=== PATIENT | male | born 1985 | race Caucasian/White ===

== ENCOUNTER 2020-01-12 18:58 | Emergency (ER) | payer SELFPAY ==
[2020-01-12 19:18] VITALS: BP 148/102
--- NOTE | 2020-01-12 19:22 | UC ---
FLU HPI - HPI Summary HPI Summary: Cough since 01/10/20; CP, upper back pain, with cough, and inhalation-not exhalation - History of Current Complaint Chief Complaint: UCRespiratory Stated Complaint: COUGH, LIGHT HEADED Time Seen by Provider: 01/12/20 19:08 Hx Obtained From: Patient Onset/Duration: Sudden Onset, Lasting Days Severity Currently: Mild Severity Initially: Moderate Pain Intensity: 4 - Allergy/Home Medications Allergies/Adverse Reactions: Allergies Allergy/AdvReac Type Severity Reaction Status Date / Time amoxicillin Allergy Rash Verified 01/12/20 19:09 Home Medications: Home Medications Guaifenesin/Dextromethorphan [Mucinex Dm ER 1,200-60 mg Tab] 1 each PO Q12H 05/26 [History Confirmed 01/12/20] Sambucol 1 dose PO Q3H PRN 01/12/20 [History Confirmed 01/12/20] PMH/Surg Hx/FS Hx/Imm Hx Previously Healthy: Yes - Surgical History Surgical History: Yes Surgery Procedure, Year, and Place: tonsils as child - Social History Alcohol Use: Weekly Alcohol Amount: 30 Substance Use Type: None Smoking Status (MU): Current Some Day Smoker Review of Systems All Other Systems Reviewed And Are Negative: Yes Constitutional: Positive: Fever, Chills, Fatigue Respiratory: Positive: Cough Musculoskeletal: Positive: Myalgia Neurological/Mental Status: Positive: Headache Physical Exam Triage Information Reviewed: Yes Appearance: Well-Nourished, Ill-Appearing, Pain Distress Vital Signs: Initial Vital Signs Temp 97.3 F 01/12/20 19:08 Pulse 115 01/12/20 19:08 Resp 16 01/12/20 19:08 BP 148/102 01/12/20 19:08 Pulse Ox 98 01/12/20 19:08 Vital Signs Reviewed: Yes Eye Exam: Normal ENT: Positive: Pharyngeal erythema, TM bulging, TM red, Hoarse voice Dental Exam: Normal Neck exam: Normal Respiratory Exam: Normal Respiratory: Positive: Chest non-tender, Lungs clear, Normal breath sounds Cardiovascular Exam: Normal Cardiovascular: Positive: RRR, No Murmur, Pulses Normal Abdominal Exam: Normal Bowel Sounds: Positive: Present Musculoskeletal Exam: Normal Neurological Exam: Normal Psychological Exam: Normal Skin Exam: Normal Flu Course/Dx - Course Course Of Treatment: hx obtained, exam performed ,meds reviewed, flu swab obtained. - Differential Dx/Diagnosis Differential Diagnosis/HQI/PQRI: Influenza Provider Diagnosis: Influenza B Discharge ED - Sign-Out/Discharge Documenting (check all that apply): Patient Departure All imaging exams completed and their final reports reviewed: No Studies - Discharge Plan Condition: Stable Disposition: HOME Patient Education Materials: Influenza (ED) Referrals: No Primary Care Phys,NOPCP [Primary Care Provider] - - Billing Disposition and Condition Condition: STABLE Disposition: Home
[2020-01-12 19:30] LABS: Influenza B Molecular POSITIVE (Negative)
[2020-01-12] MEDS ORDERED: Albuterol HFA INHALER* 8 gm MDI INH ONE (19:37)
== END 2020-01-12 19:49 | disposition home or self-care (01) ==
LOC: UCCORT 18:58
DX: J10.1 Influenza due to other identified influenza virus with other respiratory manifestations (principal); F17.200 Nicotine dependence, unspecified, uncomplicated; Z88.0 Allergy status to penicillin
CPT/HCPCS: 99202; A9270-GY; G0463

== ENCOUNTER 2020-02-20 12:37 | Emergency (ER) | payer OTHER ==
[2020-02-20 12:52] VITALS: BP 147/102
--- NOTE | 2020-02-20 13:22 | UC ---
Cardiac HPI - HPI Summary HPI Summary: mid chest tightness x 4 weeks pain is 6 out 10 , interment, worse with food/ lying down better with sitting up , was improving over the past 2 weeks but got very bad this morning denies any cough , no fever, no chills , no body aches no sick contacts, c/o tingling of his fingers, - History of Current Complaint Chief Complaint: UCChestPain Stated Complaint: CHEST PRESSURE, DIZZINESS Time Seen by Provider: 02/20/20 12:42 Hx Obtained From: Patient Onset/Duration: Gradual Onset, Lasting Weeks - 4, Still Present Timing: Constant Initial Severity: Moderate Current Severity: Moderate Pain Intensity: 3 Chest Pain Location: Mid Sternal Character: Tightness, Burning Aggravating Factor(s): Movement, Other - food Alleviating Factor(s): Upright Associated Signs & Symptoms: Positive: Chest Pain. Negative: Cough - Allergy/Home Medications Allergies/Adverse Reactions: Allergies Allergy/AdvReac Type Severity Reaction Status Date / Time amoxicillin Allergy Rash Verified 02/20/20 12:49 Home Medications: Home Medications Calcium Carbonate CHEW TAB* [Tums*] 500 mg PO SEE INSTRUCTIONS PRN 02/20/20 [ History Confirmed 02/20/20] L.acidoph,Paracasei, B.lactis [Probiotic] 1 each PO DAILY 02/20/20 [History Confirmed 02/20/20] Omeprazole 40 mg PO DAILY #30 capsule. 02/20/20 [Rx] Ubidecarenone [Co Q10] 200 mg PO DAILY 02/20/20 [History Confirmed 02/20/20] PMH/Surg Hx/FS Hx/Imm Hx Psychological History: Anxiety - Surgical History Surgical History: Yes Surgery Procedure, Year, and Place: Tonsillectomy, ~1990 - Family History Known Family History: Negative: Diabetes - Social History Alcohol Use: 15 beers twice weekly Alcohol Amount: Has decreased amount in the last month Substance Use Type: None Smoking Status (MU): Current Some Day Smoker Type: Cigars Amount Used/How Often: when playing golf Review of Systems All Other Systems Reviewed And Are Negative: Yes Constitutional: Positive: Negative Skin: Positive: Negative Eyes: Positive: Negative ENT: Positive: Negative Respiratory: Positive: Negative Cardiovascular: Positive: Chest Pain. Negative: Palpitations Gastrointestinal: Negative: Abdominal Pain Is Patient Immunocompromised?: No Physical Exam Triage Information Reviewed: Yes Appearance: Well-Appearing, No Pain Distress, Well-Nourished Vital Signs: Initial Vital Signs Temp 100.2 F 02/20/20 12:43 Pulse 115 02/20/20 12:43 Resp 20 02/20/20 12:43 BP 147/102 02/20/20 12:43 Pulse Ox 99 02/20/20 12:43 Vital Signs Reviewed: Yes Eye Exam: Normal Eyes: Positive: Conjunctiva Clear ENT: Positive: Normal ENT inspection, Hearing grossly normal, Pharynx normal Neck: Positive: Supple, Nontender, No Lymphadenopathy Respiratory: Positive: Chest non-tender, Lungs clear, Normal breath sounds Cardiovascular: Positive: No Murmur, Tachycardia Abdominal Exam: Normal Abdomen Description: Positive: Nontender, Soft. Negative: CVA Tenderness (R), CVA Tenderness (L) - Assessment/Plan Course Of Treatment: elevated bp : cont. to monitor your bp at home follow up with your pcp in one week - Clinical Impression Provider Diagnosis: Esophagitis, Chest tightness, Elevated BP without diagnosis of hypertension Discharge ED - Sign-Out/Discharge Documenting (check all that apply): Patient Departure All imaging exams completed and their final reports reviewed: No Studies - Discharge Plan Condition: Stable Disposition: HOME Prescriptions: Omeprazole 40 mg PO DAILY #30 capsule. Patient Education Materials: Viral Syndrome (ED), Esophagitis (ED) Forms: COVID-19 Tested & Isolation Referrals: No Primary Care Phys,NOPCP [Primary Care Provider] - - Billing Disposition and Condition Condition: STABLE Disposition: Home
== END 2020-02-20 13:22 | disposition home or self-care (01) ==
LOC: UCCORT 12:37
DX: K20.9 Esophagitis, unspecified (principal); R07.89 Other chest pain; R03.0 Elevated blood-pressure reading, without diagnosis of hypertension; R50.9 Fever, unspecified; Z20.828 Contact with and (suspected) exposure to other viral communicable diseases; Z88.0 Allergy status to penicillin; Z72.0 Tobacco use
CPT/HCPCS: 87635; 99212; G0463; G2023